=== PATIENT | female | born 1960 | race Caucasian/White ===

== ENCOUNTER → 2017-04-26 | Outpatient (CLI) | payer BC | LOC: M.ULTRA 15:06 | DX: E01.0 Iodine-deficiency related diffuse (endemic) goiter (principal); R94.6 Abnormal results of thyroid function studies ==

== ENCOUNTER → 2017-12-13 | Outpatient (CLI) | payer BC ==
--- NOTE | 2017-12-16 17:15 | EEG ---
[address] [address] EEG STUDY REPORT Name: JOSIE HAMILTON Room: [facility]#: [id number] Admission: 12/13/17 Attend Phys: David Gamez MD Discharge: Date of : 62 Report #: [id number] THIS REPORT FOR: //name// CC: Jennifer Gamez DATE OF SERVICE: 12/13/2017 This patient is being evaluated for syncope and memory lapses. EEG was done by placing the electrodes by standard 10-20 system of electrode placement. Both referential and sequential montages were used for recording. Background activity in this patient's EEG is about 11 Hz and 40 microvolt. It is a symmetrical activity. The patient became drowsy that was associated with bilateral slowing and vertex sharp waves. Photic stimulation and hyperventilation was unremarkable. Throughout the record, no active epileptiform activity was noticed. IMPRESSION: This patient's EEG is within normal limits. Thank you very much for this referral. <ELECTRONICALLY SIGNED> By: David Gamez MD 12/16/17 1715 [id number] Gamez MD /nt
== END ==
LOC: M.CRD 12:29
DX: R55 Syncope and collapse (principal)